=== PATIENT | male | born 1995 | race African-American/Black ===

== ENCOUNTER 2017-03-16 12:20 | Emergency (ER) | payer OTHER ==
[~2017-03-16] VITALS: Ht 188 cm; Wt 72.9 kg
[2017-03-16 12:41] VITALS: BP 129/50
[2017-03-16] MEDS ORDERED: MOTRIN600 MG PO (13:34)
== END 2017-03-16 13:50 | disposition home or self-care (01) ==
LOC: EME 12:20
DX: S40.012A Contusion of left shoulder, initial encounter (principal); W51.XXXA Accidental striking against or bumped into by another person, initial encounter; Y93.67 Activity, basketball
CPT/HCPCS: 99281; 99283